=== PATIENT | male | born 1960 | race Caucasian/White ===

== ENCOUNTER 2018-05-05 10:44 | Emergency (ER) | payer OTHER ==
[~2018-05-05] VITALS: Ht 175.3 cm; Wt 89.8 kg
== END 2018-05-05 15:18 | disposition home or self-care (01) ==
LOC: ER 10:44
DX: R42 Dizziness and giddiness (principal); I95.9 Hypotension, unspecified

== ENCOUNTER → 2018-05-15 | Outpatient (CLI) | payer OTHER | END | disposition home or self-care (01) | LOC: NUCLEAR 09:00 | DX: I67.89 Other cerebrovascular disease (principal); R07.89 Other chest pain ==

== ENCOUNTER 2021-05-23 05:42 | Day surgery (SDC) | payer OTHER ==
[~2021-05-23 05:42] MED LIST: ACID REDUCER20 M1 PO; ATACAND32 MG PO; CARDURA PO; CIALIS5 MG PO
[2021-05-23] MEDS ORDERED: PERCOCET 5-3251 EACH PO (10:35)
[2021-05-23] MEDS ORDERED: NEURONTIN600 M1 PO (10:35)
[2021-05-23] MEDS ORDERED: POLY119PG PO (10:35)
== END 2021-05-23 13:40 | disposition home or self-care (01) ==
LOC: CIR.AMB 05:42
PROVIDERS: ATTEND Surgery
DX: K40.90 Unilateral inguinal hernia, without obstruction or gangrene, not specified as recurrent (principal); Z20.822 Contact with and (suspected) exposure to COVID-19; I10 Essential (primary) hypertension; G47.33 Obstructive sleep apnea (adult) (pediatric); Z85.46 Personal history of malignant neoplasm of prostate

== ENCOUNTER 2023-01-01 05:12 | Day surgery (SDC) | payer OTHER ==
[~2023-01-01 05:12] MED LIST changes: +NEURONTIN600 M1 PO; +PERCOCET 5-3251 EACH PO; +POLY119PG PO
[2023-01-01] MEDS ORDERED: PERCOCET 5-3251 EACH PO (11:07)
[2023-01-01] MEDS ORDERED: POLY119PG PO (11:08)
[2023-01-01] MEDS ORDERED: NEURONTIN300 MG PO (11:08)
== END 2023-01-01 15:20 | disposition home or self-care (01) ==
LOC: CIR.AMB 05:12
PROVIDERS: ATTEND Surgery
DX: K40.90 Unilateral inguinal hernia, without obstruction or gangrene, not specified as recurrent (principal); Z20.822 Contact with and (suspected) exposure to COVID-19
CPT/HCPCS: 49505; 12032; C1781

== ENCOUNTER 2024-01-06 09:39 | Emergency (ER) | payer OTHER ==
[~2024-01-06] VITALS: Ht 175.3 cm; Wt 81.6 kg
[~2024-01-06 09:39] MED LIST changes: +NEURONTIN300 MG PO
[2024-01-06] MEDS ORDERED: AVAPRO300 MG (09:52)
[2024-01-06] MEDS ORDERED: ASPIRIN 325 MG TABLET PO ONE (10:15)
[2024-01-06] MEDS ORDERED: TICAGRELOR 90 MG TABLET PO ONE (10:15)
[2024-01-06 10:42] LABS: HEMATOCRIT 38.6 % (39.0-48.0); HEMOGLOBIN 13.7 g/dL (13-16.00); MEAN CELL VOLUME 90.5 fL (80.0-100.00); MEAN CORPUSCULAR HEMOGLOBIN 32.1 pg (27.00-32.0); MEAN CORPUSCULAR HGB CONC 35.5 g/dl (32.0-36.0); PLATELET COUNT 275 K/uL (150-450); RED BLOOD COUNT 4.26 M/uL (4.00-6.00); RED CELL DISTRIBUTION WIDTH 13.4 % (11.5-14.5)
[2024-01-06 11:58] LABS: ALBUMIN 3.6 gm/dL (3.4-5.0); BILIRUBIN TOTAL 0.63 mg/dL (0.3-1.2); CALCIUM 9.1 mg/dL (8.5-10.1); CREATININE SERUM 0.83 mg/dL (0.70-1.30); GFR 93.57; GLOBULINA 3.1 G/DL (2.4-3.5); POTASSIUM 4.31 mEq/L (3.5-5.1); TOTAL PROTEIN 6.7 gm/dL (6.4-8.2)
== END 2024-01-06 16:58 | disposition home or self-care (01) ==
LOC: ER 09:39
PROVIDERS: Emergency Medicine
DX: F43.0 Acute stress reaction (principal); R07.9 Chest pain, unspecified; R53.1 Weakness; I10 Essential (primary) hypertension; Z20.822 Contact with and (suspected) exposure to COVID-19